=== PATIENT | female | born 1985 | race Caucasian/White ===

== ENCOUNTER 2022-05-24 11:37 | Emergency (ER) | payer OTHER, SELFPAY ==
--- NOTE | ~2022-05-24 | CT_ITS ---
EXAMINATION: CT abdomen pelvis wo con DATE: 05/24/2022 13:09 INDICATION: Left flank pain, nausea, dysuria. TECHNIQUE: Computed tomography (CT) of the abdomen and pelvis was performed without intravenous contr ast. Automated exposure control and iterative reconstruction technique were employed. The dose-length product was 1362.60 mGy-cm. COMPARISON: None FINDINGS: Lower lungs are clear. Heart size is normal. No pericardial or pleural effusion. Liver, gallbladder, spleen and bilateral adrenal glands are normal. Tiny dystrophic calcific location at the tail of the pancreas consistent with sequela of chronic pancreatitis. 1 mm nonobstructing stones at the interpola r regions of both kidneys. No ureteral stones or hydronephrosis. Bladder, anteverted uterus and bilat eral adnexa are unremarkable. Tampon within the vaginal vault. Bowels including the appendix are norm al. No free intraperitoneal gas or fluid. No pathologically enlarged abdominal or pelvic lymphadenopa thy. Mild thoracic and lumbar spondylosis. IMPRESSION: 1. Bilateral 1 mm nonobstructing renal stones. No urolithiasis or hydronephrosis. Reviewed, dictated and finalized at location B. IMPRESSION: 1. Bilateral 1 mm nonobstructing renal stones. No urolithiasis or hydronephrosi s.
[2022-05-24 11:57] VITALS: BP 168/104; PULSE 64; RESP 18; TEMP 36.8; O2SAT 99
[2022-05-24 12:22] LABS: Basophils Absolute Auto 0.1 K/mm3 (0.0-0.1); Basophils Percent Auto 0.7 % (0.2-1.2); Eosinophils Absolute Auto 0.2 K/mm3 (0-0.3); Eosinophils Percent Auto 2.1 % (0-4.4); Hematocrit 43.9 % (37.0-47.0); Hemoglobin 14.6 g/dL (12.0-15.0); Immature Granulocyte Absolute 0.06 K/mm3 (0.00-0.031); Immature Granulocyte Percent A 0.5 % (0-0.5); Lymphocytes Absolute Auto 1.91 K/mm3 (0.9-3.2); Lymphocytes Percent Auto 17.1 % (18.3-44.2); Mean Corpuscular HGB Conc 33.3 g/dl (32-36); Mean Corpuscular Hemoglobin 30.7 pg (26-34); Mean Corpuscular Volume 92.4 fl (80-100); Mean Platelet Volume 8.5 fl (7.4-10.4); Monocytes Absolute Auto 0.6 K/mm3 (0.1-0.6); Neutrophils Absolute Auto 8.3 K/mm3 (1.3-6.7); Neutrophils Percent Auto 74.6 % (45.5-73.1); Platelet Count Result 335 k/mm3 (150-375); Red Blood Count 4.75 M/mm3 (4.2-5.4); Red Cell Distribution Width 13.1 % (11.5-14.5); White Blood Count 11.2 K/mm3 (4.5-10.0)
[2022-05-24 12:25] LABS: Appearance Urine Clear (Clear); Bacteria Urine None Seen /hpf; Bilirubin Urine Negative (Negative); Blood Urine 2+ (Negative); Color Urine Yellow (Yellow); Glucose Urine UA Negative (Negative); Ketones Urine Negative (Negative); Leukocyte Esterase Ur Negative LEU/UL (Negative); Nitrate Urine Negative (Negative); Non Pathogenic Casts 0-2; Protein Urine Negative (Negative); RBC Urine 0-2 /hpf (0-2); Squamous Epithelial Cell Urine None seen /hpf (Few); Urobilinogen Urine 0.2 mg/dL (<2.0); WBC Urine 0-5 /hpf
[2022-05-24 12:31] LABS: Alanine Aminotransferase 21 U/L (6-35); Albumin Level 4.6 g/dL (3.5-5.1); Alkaline Phosphatase 79 U/L (38-126); Anion Gap 6 mmol/L (8-16); Aspartate Amino Transferase 20 U/L (14-36); Bilirubin,Total 0.4 mg/dL (0.2-1.3); Blood Urea Nitrogen 17 mg/dL (7-17); Calcium 8.9 mg/dL (8.4-10.2); Carbon Dioxide 26 mmol/L (22-30); Chloride 108 mmol/L (98-107); Estimated CRCL calculation 108 ml/min; Estimated Glomerular Filt Rate > 60; Glucose 108 mg/dL (65-110); Potassium 4.1 mmol/L (3.4-5.0); Sodium 140 mmol/L (137-145)
[2022-05-24 12:43] VITALS: BP 138/98; PULSE 76; RESP 18; O2SAT 98
[2022-05-24 12:43] LABS: Pregnancy On Board Control Positive; Urine Pregnancy Test Negative
--- NOTE | 2022-05-24 12:43 | ED.GENADULT ---
HPI - General Adult General Chief complaint: Urogenital-Female Stated complaint: kidney pain Time Seen by Provider: 05/24/22 12:07 Source: patient Mode of arrival: ambulatory Limitations: no limitations History of Present Illness HPI narrative: Patient is a 36-year-old female who presents to the ED with report of left flank pain. Patient reports she developed pain in her left flank region this morning. States the pain is dull and sharp, intermittent, comes in waves. She has a history of kidney stones and states the pain feels similar. Last had a stone a few years ago. Does not currently follow with a urologist. Pain does radiate around to left lower abdomen. She also reports having nausea, urinary frequency, urinary pressure, but denies hematuria, fever, vomiting, chest pain, difficulty breathing. Patient took Tylenol around 530 AM this morning. Related Data Allergies Allergy/AdvReac Type Severity Reaction Status Date / Time No Known Allergies Allergy Verified 05/24/22 12:41 Review of Systems Review of Systems: CONSTITUTIONAL: Denies fever, chills, or sweats. CARDIOVASCULAR: Denies chest pain. RESPIRATORY: Denies dyspnea. GASTROINTESTINAL: See HPI. GENITOURINARY: See HPI. SKIN: Denies rash or itching. MUSCULOSKELETAL: See HPI. NEUROLOGIC: Denies headache, numbness, or weakness. All systems reviewed & are unremarkable except as noted in HPI and below PMFSH Past Medical History Medical History (Updated 05/24/22 @ 14:42 by Yamilex Chadwick PA-C) History of kidney stones Surgical History Surgical History (Updated 05/24/22 @ 13:54 by Yamilex Chadwick PA-C) No pertinent past surgical history Social History Social History (Updated 05/24/22 @ 13:54 by Yamilex Chadwick PA-C) Smoking status: Never smoker Exam Narrative: GENERAL: Well appearing, obese, non-toxic, in no acute distress. HEAD: Normocephalic, atraumatic. NECK: Supple. No adenopathy, no masses. RESPIRATORY: Airway patent, respirations nonlabored. Clear to auscultation bilaterally, no rales, rhonchi, wheezing. CARDIOVASCULAR: Regular rate and rhythm without murmurs, rubs, or gallops. Peripheral pulses 2+ and equal bilaterally. ABDOMINAL: Soft, no significant tenderness throughout lower abdomen, nondistended, no hepatosplenomegaly. Normoactive BS. Mild CVA tenderness to percussion on left. MUSCULOSKELETAL: Moves all extremities. Strength/ROM intact without gross deformities. Mild TTP in left lumbosacral region. No midline spinal tenderness. SKIN: Warm, dry, normal color. No rashes. NEURO: A&O X3. Speech clear. Cranial nerves II-XII grossly intact. Steady gait. No ataxic movements. PSYCHIATRIC: Appropriate mood and affect. Normal interaction. Course Vital Signs Vital signs: Vital Signs Temperature 98.2 F 05/24/22 11:57 Pulse Rate 64 05/24/22 11:57 Respiratory Rate 18 05/24/22 11:57 Blood Pressure 168/104 H 05/24/22 11:57 Pulse Oximetry 99 05/24/22 11:57 Oxygen Delivery Room Air 05/24/22 11:57 Temperature 98.2 F 05/24/22 11:57 Pulse Rate 60 05/24/22 14:45 Respiratory Rate 18 05/24/22 14:45 Blood Pressure 143/80 H 05/24/22 14:45 Pulse Oximetry 98 05/24/22 14:45 Oxygen Delivery Room Air 05/24/22 11:57 Medical Decision Making MDM Narrative Medical decision making narrative: Patient presented to ED with left flank pain that began this morning, nausea, urinary symptoms, Hx of kidney stones. Patient's vital stable upon arrival. Afebrile. Mildly hypertensive, likely component of pain. CBC with mild leukocytosis of 11.2. Patient reported some recent sinus issues, but otherwise denies recent infectious symptoms, fever, cough, vomiting. CMP with stable kidney function, no other significant abnormalities. Lipase WNL. Urine with 2+ blood, patient is currently on her menstrual cycle, no other signs of infection. CT scan of abdomen/pelvis showing bilateral nonobstructing renal stones, no ureterol
[2022-05-24 12:52] LABS: Add Urine Microscopic? YES
[2022-05-24] MEDS: ONDANSETRON INJ 4 MG/2 ML VIAL IV PUSH (12:58)
[2022-05-24] MEDS: MORPHINE SULFATE (*CRX) 4 MG/ML INJ IV PUSH (12:58)
[2022-05-24] MEDS: SODIUM CHLORIDE 0.9% IV 1,000 ML 999 ML IV CONT (12:58)
[2022-05-24 14:00] VITALS: BP 141/81; PULSE 55; RESP 18; O2SAT 100
[2022-05-24 14:13] LABS: Lipase 79 U/L (23-300)
[2022-05-24] MEDS: KETOROLAC 30 MG/ML VIAL (*BKC) IV PUSH (14:40)
[2022-05-24 14:45] VITALS: BP 143/80; PULSE 60; RESP 18; O2SAT 98
== END 2022-05-24 14:47 | disposition home or self-care (01) ==
PROVIDERS: Emergency Medicine; Emergency Provider Physician Assistant
DX: N20.0 Calculus of kidney (principal); Z87.442 Personal history of urinary calculi
CPT/HCPCS: 36415; 74176; 80053; 81001; 81025; 83690; 85025; 96361; 96374; 96375; 99284; J1885; J2270; J2405; J7030

== ENCOUNTER 2023-04-22 18:29 | Emergency (ER) | payer OTHER, SELFPAY ==
--- NOTE | ~2023-04-22 | XR_ITS ---
EXAMINATION: XR chest 2V DATE: 04/22/2023 19:14 INDICATION: Chest pain. TECHNIQUE: Frontal and lateral views of the chest were obtained. COMPARISON: CT abdomen and pelvis 05/24/2022 FINDINGS: There is no pneumonia, pleural effusion, or pneumothorax. The heart size is normal. IMPRESSION: 1. No acute cardiopulmonary disease. Reviewed, dictated and finalized at location E. NER MACHINE
--- NOTE | ~2023-04-22 | CT_ITS ---
EXAMINATION: CTA chest PE abdomen pel DATE: 04/23/2023 00:34 INDICATION: Shortness of breath and chest pain, elevated lipase TECHNIQUE: Computed tomography angiography (CTA) of the chest was performed with 100 mL Omnipaque-350 intravenous contrast timed to evaluate the pulmonary arteries. Subsequent postcontrast images of the abdomen and pelvis are obtained. Coronal maximum intensity projection 3D-reconstructions were create d by the technologist. The dose-length product (DLP) was 2275.00 mGy-cm. Automated exposure control a nd iterative reconstruction technique were employed. COMPARISON: 05/24/2022 FINDINGS: CTA CHEST: The pulmonary arteries are well-opacified. No pulmonary embolism is identified. There is c hronic elevation of the right hemidiaphragm. The lungs are free of acute opacities. No pleural effusi on or pneumothorax. No pathologically enlarged thoracic lymph nodes are identified. The heart size is normal. There is mild thoracic spondylosis. ABDOMEN/PELVIS CT: The liver, spleen, pancreas, gallbladder, and adrenal glands are normal. Hypoatten uating lesions in the kidneys, measuring up to 7 mm on the right, are too small to characterize but l ikely represent cysts. No pathologically enlarged abdominal or pelvic lymph nodes are identified. No free intraperitoneal gas or evidence of bowel obstruction. The appendix is normal. There is mild lumb ar spondylosis. IMPRESSION: 1. No pulmonary embolus or acute cardiopulmonary abnormality. 2. No acute findings of the abdomen or pelvis. Reviewed, dictated and finalized at location F. [employer] MILL SUPERVISOR
[2023-04-22 18:43] VITALS: BP 153/92; PULSE 63; RESP 18; TEMP 36.5; O2SAT 97
--- NOTE | 2023-04-22 18:47 | ECG_ITS ---
Measurements Intervals [place] Rate: 60 P: 11 [place]: 174 QRS: 12 QRSD: 88 T: 48 QT: 405 QTc: 405 Interpretive Statements SINUS RHYTHM NONSPECIFIC T-WAVE ABNORMALITY LOW VOLTAGE ABNORMAL ECG NO PREVIOUS ECG AVAILABLE FOR COMPARISON Electronically Signed On 04-23-2023 8:02:35 OWNER MANAGER by Elver Cruz M.D.
[2023-04-22 19:25] LABS: Basophils Absolute Auto 0.1 K/mm3 (0.0-0.1); Basophils Percent Auto 0.7 % (0.2-1.2); Eosinophils Absolute Auto 0.3 K/mm3 (0-0.3); Eosinophils Percent Auto 3.9 % (0-4.4); Hematocrit 41.2 % (37.0-47.0); Hemoglobin 13.3 g/dL (12.0-15.0); Immature Granulocyte Absolute 0.01 K/mm3 (0.00-0.031); Immature Granulocyte Percent A 0.1 % (0-0.5); Lymphocytes Absolute Auto 2.12 K/mm3 (0.9-3.2); Lymphocytes Percent Auto 29.3 % (18.3-44.2); Mean Corpuscular HGB Conc 32.3 g/dl (32-36); Mean Corpuscular Hemoglobin 29.8 pg (26-34); Mean Corpuscular Volume 92.2 fl (80-100); Mean Platelet Volume 9.6 fl (7.4-10.4); Monocytes Absolute Auto 0.4 K/mm3 (0.1-0.6); Monocytes Percent Auto 5.1 % (2.6-8.5); Neutrophils Absolute Auto 4.4 K/mm3 (1.3-6.7); Neutrophils Percent Auto 60.9 % (45.5-73.1); Platelet Count Result 322 k/mm3 (150-375); Red Blood Count 4.47 M/mm3 (4.2-5.4); Red Cell Distribution Width 13.2 % (11.5-14.5); White Blood Count 7.2 K/mm3 (4.5-10.0)
[2023-04-22 19:33] LABS: INR 0.9; Prothrombin Time 12.7 Seconds (11.1-14.7)
[2023-04-22 19:36] LABS: Partial Thromboplastin Time 28.7 SECONDS (22.3-36.8)
[2023-04-22 19:37] LABS: Alanine Aminotransferase 18 U/L (6-35); Albumin Level 3.8 g/dL (3.5-5.1); Alkaline Phosphatase 73 U/L (38-126); Anion Gap 6 mmol/L (8-16); Aspartate Amino Transferase 21 U/L (14-36); Bilirubin,Total 0.3 mg/dL (0.2-1.3); Blood Urea Nitrogen 14 mg/dL (7-17); Calcium 9.2 mg/dL (8.4-10.2); Carbon Dioxide 25 mmol/L (22-30); Chloride 107 mmol/L (98-107); Estimated CRCL calculation 110 ml/min; Estimated Glomerular Filt Rate > 60; Glucose 114 mg/dL (65-110); Lipase 701 U/L (23-300); Potassium 3.7 mmol/L (3.4-5.0); Sodium 138 mmol/L (137-145)
[2023-04-22 19:49] LABS: Troponin I < 0.012 ng/mL (0.000-0.034)
[2023-04-22] MEDS: ASPIRIN 81 MG CHEWABLE TABLET 324 MG PO (22:11)
[2023-04-22 22:14] VITALS: PULSE 58; RESP 17; O2SAT 98
[2023-04-22 22:40] VITALS: PULSE 50; RESP 17; O2SAT 97
[2023-04-22 22:43] LABS: Troponin I < 0.012 ng/mL (0.000-0.034)
[2023-04-22 23:02] VITALS: PULSE 51; RESP 18; O2SAT 97
[2023-04-22 23:30] VITALS: PULSE 55; RESP 17; O2SAT 98
--- NOTE | 2023-04-22 23:55 | ED.GENADULT ---
HPI - General Adult General Chief complaint: Unspecified Stated complaint: epigastric pain with reflux for 2 weeks Time Seen by Provider: 04/22/23 22:05 Source: patient Mode of arrival: ambulatory Limitations: no limitations History of Present Illness HPI narrative: Patient is a 37-year-old female who presents ED with report of chest pain. Patient reports having intermittent episodes of chest pain over the last several days. She describes it as though she develops shortness of breath, diffuse pain/tightness across her chest, tingling in her hands, lightheadedness. Episodes last a few seconds at a time before resolving on their own. No aggravating or precipitating factors that she is able to identify. Today episode occurred while lying flat. Patient became nervous and decided to prompt the ED. She denies any symptoms currently. Denies abdominal pain, nausea, vomiting, lower extremity pain or swelling, history of blood clots. No known history of cardiac disease. Does report family history of heart disease in distant relatives. Related Data Allergies Allergy/AdvReac Type Severity Reaction Status Date / Time No Known Allergies Allergy Verified 04/22/23 18:32 Review of Systems Review of Systems: CONSTITUTIONAL: Denies fever, chills, or sweats. ENT: Denies rhinorrhea, congestion, sore throat. CARDIOVASCULAR: See HPI RESPIRATORY: See HPI GASTROINTESTINAL: Denies abdominal pain, nausea, vomiting. MUSCULOSKELETAL: Denies back pain, extremity pain, myalgia. NEUROLOGIC: See HPI All systems reviewed & are unremarkable except as noted in HPI and below PMFSH Past Medical History Medical History History of kidney stones Surgical History Surgical History No pertinent past surgical history Social History Social History Smoking status: Never smoker Exam Narrative: GENERAL: Well appearing, morbidly obese with BMI of 40.2, non-toxic, in no acute distress. HEAD: Normocephalic, atraumatic. RESPIRATORY: Airway patent, respirations nonlabored. Clear to auscultation bilaterally, no rales, rhonchi, wheezing. CARDIOVASCULAR: Regular rate and rhythm without murmurs, rubs, or gallops. ABDOMINAL: Soft, no tenderness throughout epigastric region, nondistended. Normoactive BS. MUSCULOSKELETAL: Moves all extremities. No gross deformities. no chest wall tenderness to palpation. No lower extremity edema. No calf tenderness. SKIN: Warm, dry, normal color. NEURO: A&O X3. Speech clear. Cranial nerves II-XII grossly intact. No ataxic movements. PSYCHIATRIC: Appropriate mood and affect. Normal interaction. Course Vital Signs Vital signs: Vital Signs Temperature 97.7 F 04/22/23 18:43 Pulse Rate 63 04/22/23 18:43 Respiratory Rate 18 04/22/23 18:43 Blood Pressure 153/92 H 04/22/23 18:43 Pulse Oximetry 97 04/22/23 18:43 Oxygen Delivery Room Air 04/22/23 18:43 Temperature 97.7 F 04/22/23 18:43 Pulse Rate 51 L 04/23/23 00:08 Respiratory Rate 11 L 04/23/23 00:08 Blood Pressure 128/75 04/23/23 00:08 Pulse Oximetry 98 04/23/23 00:08 Oxygen Delivery Room Air 04/22/23 18:43 Medical Decision Making [facility] Narrative Medical decision making narrative: patient presented to ED with several day history of intermittent episodes of chest pain, associated with shortness breath, lightheadedness. VSS upon arrival. Patient denying any active CP upon my evaluation. Exam unremarkable. HEART score = 1 based on BMI. No other significant risk factors for ACS. EKG without ischemic changes. Troponin negative X3. basic laboratory studies were fairly unremarkable. Normal LFTs, though lipase mildly elevated to 701. Patient without any significant epigastric tenderness on exam. No N/V. No previous history of pancreatitis. CXR
[2023-04-23] VITALS: PULSE 55; RESP 15
[2023-04-23 00:07] VITALS: PULSE 50
[2023-04-23 00:08] VITALS: BP 128/75; PULSE 51; RESP 11; O2SAT 98
[2023-04-23 01:52] LABS: Troponin I < 0.012 ng/mL (0.000-0.034)
[2023-04-23 03:32] VITALS: BP 146/87; PULSE 64; RESP 14; O2SAT 96
== END 2023-04-23 03:40 | disposition home or self-care (01) ==
PROVIDERS: Student in an Organized Health Care Education/Training Program; Emergency Provider Physician Assistant; PCP Family Medicine
DX: R07.89 Other chest pain (principal); R74.8 Abnormal levels of other serum enzymes; Z87.442 Personal history of urinary calculi; R94.31 Abnormal electrocardiogram [ECG] [EKG]
CPT/HCPCS: 36415; 71046; 71275; 74177; 80053; 83690; 84484; 85025; 85610; 85730; 93005; 99284; A9270; Q9967